=== PATIENT | female | born 1965 | race Caucasian/White ===

== ENCOUNTER 2021-01-20 08:31 | Emergency (ER) | payer OTHER, SELFPAY ==
[2021-01-20 08:46] VITALS: BP 167/92; PULSE 116; RESP 16; TEMP 37.4; O2SAT 99
[2021-01-20 08:47] VITALS: BP 167/92; PULSE 116; RESP 16; TEMP 37.4; O2SAT 99
--- NOTE | 2021-01-20 08:50 | ED.SKABFB ---
HPI - Skin/Abscess/Foreign Bdy General Chief complaint: Skin/Abscess/Foreign Body Stated complaint: Swelling Time Seen by Provider: 01/20/21 08:50 Source: patient Mode of arrival: ambulatory Limitations: no limitations History of Present Illness HPI narrative: Renata Nichols is a 55 yo female with no PMH who comes to [facility] with a an abscess on the outside of her right labia that started 3 or 4 days ago but has gotten particularly painful and swollen the last 2 days. She states she has had a few small ones in the past that are drained on their own and resolved this the first time that she has been unable to get an abscess like this to drain. Painful to touch Related Data Allergies Allergy/AdvReac Type Severity Reaction Status Date / Time No Known Allergies Allergy Verified 01/20/21 08:46 Review of Systems Review of Systems: Narrative: CONSTITUTIONAL: Denies fever, chills, sweats. EYES: Denies visual changes, redness, discharge. ENT: Denies rhinorrhea, congestion, sore throat, otalgia. CARDIOVASCULAR: Denies chest pain, palpitations, edema. RESPIRATORY: Denies dyspnea, wheezing, cough GASTROINTESTINAL: Denies abdominal pain, nausea, vomiting, diarrhea. GENITOURINARY: Denies dysuria, hematuria, abnormal discharge SKIN: Denies rash or itching. Abscess to right labial lip NEUROLOGIC: Denies numbness, or focal weakness. PSYCHIATRIC: Denies anxiety or depression. PMFSH Past Medical History Medical History No acute medical problems Family History Family History Father Family history of coronary artery disease Social History Social History Smoking status: Never smoker Alcohol intake: never Comments At time of signature, I agree with nursing past medical, surgical, social and family history. There is no relevant family history pertinent to the presenting complaint. Patient's blood pressure is elevated and this tachycardia probably due to the pain of her situation but she will follow up with her primary care doctor Exam Narrative: Exam Narrative: GENERAL: This is a well-nourished, well-developed patient, in mild distress. HEAD: normocephalic, atraumatic. EYES:Sclera clear/white. Vision is grossly intact. EARS: External ears normal, Hearing grossly intact. NOSE: External nose normal without nasal discharge, nares without redness, no rhinorrhea. THROAT: Mucous membranes moist, NECK: Neck supple, non-tender CARDIOVASCULAR: Regular rate and rhythm without murmurs, gallops, or rubs. RESPIRATORY: Clear to auscultation. Breath sounds equal bilaterally. No wheezes, rales, or rhonchi. GASTROINTESTINAL: Abdomen soft, has menstrual cramps, SKIN: warm, intact with no suspicious lesions or rash, good texture and turgor. Large cyst on external part of right labia with dark blanching in the center, will need to be drained NEURO: awake, alert, and oriented to person, place and time. There were no obvious focal neurologic abnormalities. Steady gait EXTREMITIES: Normal range of motion. BACK: Nontender without deformity Course Course Emergency Course: Patient comes with large right labial cyst I&D of abscess with antibiotics per Bactrim and Keflex and pain medications hydrocodone Vital Signs Vital signs: Vital Signs Temperature 99.3 F 01/20/21 08:46 Pulse Rate 116 H 01/20/21 08:46 Respiratory Rate 16 01/20/21 08:46 Blood Pressure 167/92 H 01/20/21 08:46 Pulse Oximetry 99 01/20/21 08:46 Temperature 99.3 F 01/20/21 08:47 Pulse Rate 116 H 01/20/21 08:47 Respiratory Rate 16 01/20/21 08:47 Blood Pressure 167/92 H 01/20/21 08:47 Pulse Oximetry 99 01/20/21 08:47 Procedures Abscess I/D other: Date of Incision: 01/20/21 Time of Incision: 09:00 Side (if applicable): right Local Anesthetic: lidocai
== END 2021-01-20 09:25 | disposition home or self-care (01) ==
PROVIDERS: Emergency Provider Nurse Practitioner; PCP Family Medicine
DX: N76.4 Abscess of vulva (principal)
CPT/HCPCS: 56405; 99213; G0463

== ENCOUNTER 2021-05-16 10:23 | Outpatient (CLI) | payer OTHER, SELFPAY ==
[2021-05-16 10:57] LABS: Hemoglobin A1C 5.6 % (<5.7)
== END 2021-05-16 10:24 | disposition home or self-care (01) ==
LOC: CHSLAB 10:25
PROVIDERS: PCP Family Medicine; Visit Provider Obstetrics & Gynecology
DX: N30.90 Cystitis, unspecified without hematuria (principal)
CPT/HCPCS: 36415; 83036

== ENCOUNTER → 2021-06-14 14:43 | Outpatient (CLI) | payer OTHER, SELFPAY ==
--- NOTE | ~2021-06-14 | US_ITS ---
EXAMINATION: US pelvic complete w TV DATE: 06/14/2021 15:13 INDICATION: Excessive and frequent menstruation with irregular cycles TECHNIQUE: Multiple transabdominal and endovaginal sonographic images of the pelvis were obtained. COMPARISON: None. FINDINGS: The uterus measures 10.2 x 4.6 x 5.8 cm. The endometrial complex measures 5 mm in thickness. There a re at least 5 heterogeneously hypoechoic masses scattered throughout the uterus consistent with uteri ne fibroids which measure between 1.9 cm and 2.9 cm in maximal diameters. A couple anechoic nabothian cysts at the cervix measuring 5 mm and 11 mm in maximal diameter. The right and left ovaries are not visualized. There is no free fluid in the pelvis. IMPRESSION: 1. Fibroid uterus. Reviewed, dictated and finalized at location A. IMPRESSION: 1. Fibroid uterus.
== END ==
PROVIDERS: Visit Provider Obstetrics & Gynecology
DX: N92.1 Excessive and frequent menstruation with irregular cycle (principal); D25.9 Leiomyoma of uterus, unspecified
CPT/HCPCS: 76830; 76856

== ENCOUNTER → 2022-01-02 12:24 | Outpatient (CLI) | payer OTHER, SELFPAY ==
--- NOTE | ~2022-01-02 | MM_ITS ---
EXAMINATION: MM screening eamon BI w linsey HISTORY: Screening TECHNIQUE: Craniocaudal and mediolateral oblique 3-D tomosynthesis images were obtained and synthetic 2-D images were generated. CAD analysis was submitted and interpreted. COMPARISON: No prior mammogram is available for comparison at this institution. BREAST PARENCHYMAL COMPOSITION: There are scattered areas of fibroglandular density. FINDINGS: There are 2 small masses in the mid outer aspect of the right breast anteriorly. The left b reast is composed of normal heterogeneous fibroglandular tissue without suspicious mass, calcificatio n or architectural distortion. IMPRESSION: 1. Small masses mid outer aspect of the right breast anteriorly. 2. Additional mammographic views and possible breast ultrasound are recommended. BI-RADS Category 0: Incomplete: Needs additional imaging evaluation. Reviewed, dictated and finalized at location A. IMPRESSION: 1. Small masses mid outer aspect of the right breast anteriorly. 2. Additional mammographic views and possible breast ultrasound are recommended . BI-RADS Category 0: Incomplete: Needs additional imaging evaluation.
== END ==
PROVIDERS: PCP Family Medicine; Visit Provider Obstetrics & Gynecology
DX: Z12.31 Encounter for screening mammogram for malignant neoplasm of breast (principal)
CPT/HCPCS: 77063; 77067

== ENCOUNTER → 2022-01-28 09:05 | Outpatient (CLI) | payer OTHER, SELFPAY ==
--- NOTE | ~2022-01-28 | MMUS_ITS ---
EXAMINATION: MM diagnostic eamon RT w linsey, US breast RT limited HISTORY: Small masses reported in mid outer aspect of anterior right breast on 01/02/2022 screening ma mmogram TECHNIQUE: Additional 3-D tomosynthesis images of the right breast were performed and synthetic 2-D i mages were generated. CAD analysis was submitted and interpreted. High resolution upper outer and low er-outer right breast ultrasound was performed. COMPARISON: 01/02/2022 bilateral screening mammogram FINDINGS: MAMMOGRAPHIC FINDINGS: There is a 2.5 mm x 3.9 mm circumscribed anterior outer mid left breast mass (craniocaudal spot compr ession image 18/; MLO Tomosynthesis image 29/100). There is a 2.6 x 3.6 mm circumscribed opacity in the inner aspect of the lower outer left breast (low ermost craniocaudal Tomosynthesis image /; MLO Tomosynthesis image 6/100). No suspicious mass, architectural distortion, malignant calcification, skin thickening or retraction of either breast is noted otherwise. ULTRASOUND: There are 2 adjacent hypoechoic lesions measuring up to approximately 3 mm maximal dimension at 8:00 5 cm from the nipple an adjacent vessel is noted on color flow imaging. No suspicious shadowing is de tected. IMPRESSION: 1. Probable benign findings 2. 6 month diagnostic right mammogram and targeted right breast ultrasound follow-up are recommended, with attention to 8:00 5 cm from nipple BI-RADS category 3, probably benign findings. Reviewed, dictated and finalized at location A. IMPRESSION: 1. Probable benign findings 2. 6 month diagnostic right mammogram and targeted right breast ultrasound foll ow-up are recommended, with attention to 8:00 5 cm from nipple BI-RADS category 3, probably benign findings.
== END ==
PROVIDERS: PCP Family Medicine; Visit Provider Obstetrics & Gynecology
DX: R92.8 Other abnormal and inconclusive findings on diagnostic imaging of breast (principal)
CPT/HCPCS: 76642; 77061; 77065; G0279

== ENCOUNTER → 2022-08-05 09:08 | Outpatient (CLI) | payer OTHER, SELFPAY ==
--- NOTE | ~2022-08-05 | MMUS_ITS ---
EXAMINATION: MM diagnostic eamon RT w linsey, US breast RT limited HISTORY: Six-month follow-up for probably benign right breast masses TECHNIQUE: Craniocaudal, mediolateral, and mediolateral oblique 3-D tomosynthesis images of the right breast were performed and synthetic 2-D images were generated. CAD analysis was submitted and interp reted. High resolution limited right breast ultrasound was performed. COMPARISON: 01/28/2022, 01/02/2022 BREAST PARENCHYMAL COMPOSITION: There are scattered areas of fibroglandular density. FINDINGS: MAMMOGRAPHIC FINDINGS: There is a stable 4.5 mm oval, circumscribed, equal density mass in the anterior third of the outer b reast at the 9:00 location 5 cm from the nipple. ULTRASOUND: There is a stable 5 mm x 3 mm oval, circumscribed, parallel, complex cystic and solid mass in the o'c lock location 5 cm from the nipple with no posterior features or internal vascularity, possible clust ered microcysts. IMPRESSION: 1. Stable, probably benign right breast mass. 2. Recommend 6 month follow-up. BI-RADS category 3, probably benign findings. Reviewed, dictated and finalized at location A. [employer]PRESENTATIVE IMPRESSION: 1. Stable, probably benign right breast mass. 2. Recommend 6 month follow-up. BI-RADS category 3, probably benign findings.
== END ==
PROVIDERS: PCP Family Medicine; Visit Provider Obstetrics & Gynecology
DX: R92.8 Other abnormal and inconclusive findings on diagnostic imaging of breast (principal)
CPT/HCPCS: 76642; 77061; 77065; G0279

== ENCOUNTER → 2023-05-20 08:58 | Outpatient (CLI) | payer OTHER, SELFPAY ==
--- NOTE | ~2023-05-20 | MM_ITS ---
EXAMINATION: MM diagnostic eamon BI w linsey HISTORY: Six-month follow-up of right breast opacity. Screening. TECHNIQUE: ML, MLO and CC 3-D tomosynthesis images of both breasts were performed and synthetic 2-D i mages were generated. CAD analysis was submitted and interpreted. COMPARISON: Serial ultrasound and diagnostic mammogram examinations and screening mammograms dating b ack to 01/02/2022 FINDINGS: Stable occasional scattered subcentimeter circumscribed low-density right breast opacities. No suspicious mass or architectural distortion, malignant calcification, skin thickening or retracti on or significant new or developing density is detected. IMPRESSION: 1. No mammographic evidence of malignancy 2. Routine annual mammographic screening. BI-RADS Category 2: Benign finding(s). Reviewed, dictated and finalized at location A.
== END ==
PROVIDERS: PCP Obstetrics & Gynecology; Visit Provider Obstetrics & Gynecology
DX: R92.8 Other abnormal and inconclusive findings on diagnostic imaging of breast (principal)
CPT/HCPCS: 77062; 77066; G0279